=== PATIENT | female | born 1990 | race American Indian/Alaskan Native ===

== ENCOUNTER 2017-05-06 11:14 | Emergency (ER) | payer SELFPAY ==
[2017-05-06] MEDS ORDERED: CLEOCIN 600 MG/50 mL 600 MG/50 ML BAG IV ONE (13:15)
[2017-05-06] MEDS ORDERED: MOTRIN PO ONE (13:16)
--- NOTE | 2017-05-06 13:16 | Emergency Department Report ---
ED ENT HPI - General Chief complaint: Pain General Stated complaint: FACIAL SWELLING LT SIDE Time Seen by Provider: 05/06/17 13:09 Source: patient Mode of arrival: Ambulatory Limitations: No Limitations - Related Data Previous Rx's Medication Instructions Recorded Last Taken Type Clindamycin [Clindamycin CAP] 300 mg PO Q8H #30 cap 05/06/17 Unknown Rx Allergies Allergy/AdvReac Type Severity Reaction Status Date / Time No Known Allergies Allergy Unverified 05/06/17 11:39 ED Dental HPI - General Chief complaint: Pain General Stated complaint: FACIAL SWELLING LT SIDE Time Seen by Provider: 05/06/17 13:09 Source: patient Mode of arrival: Ambulatory Limitations: No Limitations - History of Present Illness MD complaint: tooth pain -: Gradual Context- Dental: history of dental caries Dental Associated Symptons: Yes: Gum Swelling, Fever. No: Headache, Earache, Sore Throat - Related Data Previous Rx's Medication Instructions Recorded Last Taken Type Clindamycin [Clindamycin CAP] 300 mg PO Q8H #30 cap 05/06/17 Unknown Rx Allergies Allergy/AdvReac Type Severity Reaction Status Date / Time No Known Allergies Allergy Unverified 05/06/17 11:39 ED Review of Systems ROS: Stated complaint: FACIAL SWELLING LT SIDE Other details as noted in HPI Comment: Unobtainable due to pts medical conditions Constitutional: no symptoms reported, see HPI, fever. denies: chills Eyes: as per HPI, other (L FACE SWELLING) ENT: as per HPI, dental pain (L UPPER 2ND MOLAR). denies: ear pain, throat pain , hearing loss, epistaxis Respiratory: no symptoms reported, see HPI. denies: cough, orthopnea Cardiovascular: as per HPI. denies: chest pain, palpitations, dyspnea on exertion, orthopnea Endocrine: no symptoms reported, see HPI. denies: excessive sweating, flushing , intolerance to cold, intolerance to heat Gastrointestinal: as per HPI. denies: abdominal pain, nausea, vomiting Genitourinary: as per HPI. denies: urgency, dysuria Musculoskeletal: as per HPI. denies: back pain Skin: as per HPI. denies: rash, lesions Neurological: as per HPI. denies: headache, weakness Psychiatric: as per HPI. denies: anxiety, depression Hematological/Lymphatic: as per HPI. denies: easy bleeding (DMD 1 Y AGO. PLAYING ON PHONE DURING EXAM) ED Past Medical Hx - Past Medical History Previous Medical History?: No - Surgical History Past Surgical History?: No - Social History Smoking Status: Never Smoker Substance Use Type: None - Medications Home Medications: Home Medications Medication Instructions Recorded Confirmed Last Taken Type Clindamycin [Clindamycin CAP] 300 mg PO Q8H #30 cap 05/06/17 Unknown Rx ED Physical Exam - General Limitations: No Limitations ED Course Vital Signs 05/06/17 05/06/17 05/06/17 11:36 13:39 16:11 Temperature 100.7 F H 98.6 F Pulse Rate 90 69 Respiratory 18 18 18 Rate Blood Pressure 127/84 Blood Pressure 116/68 [Right] O2 Sat by Pulse 100 100 Oximetry - Reevaluation(s) Reevaluation #1: 05/06/17 ] TO ER W DENTAL PAIN AND MAX GUM SWELLING NO LUDWIGS NO RETROPHARY ABSCESS TAKING PO CONTROLLING SECRETIONS TALKING NO MARIELA. FEVER TREATED IV CLINDA LABS NOTED WBC N CT NOTED NO SINUS INVOLVEMENT FEVER DEC WANTS TO DC WILL COME BACK FOR RECHECK TOMORROW. VSS NAD NO FEVER ON DC 1620 ED Medical Decision Making - Lab Data Result diagrams: 05/06/17 14:43 05/06/17 14:43 - Medical Decision Making RESPONDED TO RX FEELING BETTER WILL RETURN IN AM ABC INTACT TAKING PO CONTROLLING SECRETIONS Critical care attestation.: If time is entered above; I have spent that time in minutes in the direct care of this critically ill patient, excluding procedure time. ED Disposition Clinical Impression: Dental abscess, Cellulitis Disposition: DC-01 TO HOME OR SELFCARE Is pt being admited?: No Does the pt Need Aspirin: No Condition: Stable Instructions: Dental Abscess (ED) Additional Instructions: med as ordered take next dose at 10p and then in am motrin or tylenol for fever return here tomorrow for recheck YOU WILL NEED TO SEE DMD ON MONDAY SEE LIST Prescriptions: Clindamycin [Clindamycin CAP] 300 mg PO Q8H #30 cap Referrals: [facility] [Outside] - 3-5 Days Time of Disposition: 16:14
[2017-05-06 14:04] LABS: Bacteria,Urine 1+ /HPF (Negative); Bilirubin,Urine NEG (Negative); Blood,Urine MOD (Negative); Ketones,Urine TR mg/dL (Negative); Leukocyte Esterase,Urine NEG (Negative); Mucus,Urine FEW /HPF; Nitrite,Urine NEG (Negative); Protein,Urine <15 mg/dL mg/dL (Negative)
--- NOTE | 2017-05-06 14:50 | Cat Scan Report ---
FINAL REPORT PROCEDURE: CT SINUSES WO CON TECHNIQUE: Computerized axial tomography of the paranasal sinuses was performed without contrast material. Axial, coronal, and sagittal multiplanar reformatted images were created from the original dataset. HISTORY: DENTAL ABSCESS ? TO L SINUS COMPARISON: No prior studies are available for comparison. FINDINGS: Minimal rounded mucosal thickening is seen in the anterior left ethmoid air cells. Mild mucosal thickening is seen in the floor of the left maxillary sinus. No air-fluid levels are seen in the paranasal sinuses. Globes appear symmetric. No postseptal swelling is seen. There is prominent left infraorbital swelling in the face that could be cellulitis. Prominent hazy edema is seen in the left cheek and jaw. There is concern for a periosteal abscess adjacent to the anterior left maxilla. This measures 1.0 x 0.7 cm. There is mild lucency adjacent to the tooth root of the left 2nd premolar. This has cortical breakthrough adjacent to the area of facial abscess. No cortical breakthrough is seen associated with the floor of the left maxillary sinus. IMPRESSION: 4 millimeter periapical abscess is seen associated with the left 2nd maxillary premolar. This has cortical breakthrough with adjacent 1.0 x 0.7 cm soft tissue abscess in the left cheek/upper lip. Diffuse cellulitis is suspected in the left side of the face. No involvement of the sinuses or orbits is seen.
[2017-05-06 15:00] LABS: Basophils % (Auto) 0.4 % (0.0-1.8); Hematocrit 31.2 % (30.3-42.9); Hemoglobin 10.7 gm/dl (10.1-14.3); Mean Corpuscular HGB Conc 34 % (30-34); Mean Corpuscular Hemoglobin 32 pg (28-32); Mean Corpuscular Volume 94 fl (79-97); Platelet Count 243 K/mm3 (140-440); Red Blood Count 3.33 M/mm3 (3.65-5.03); Red Cell Distribution Width 13.1 % (13.2-15.2); White Blood Count 9.2 K/mm3 (4.5-11.0)
[2017-05-06 15:22] LABS: Alanine Aminotransferase 14 units/L (7-56); Albumin 4.4 g/dL (3.9-5); Albumin/Globulin Ratio 1.3 %; Alkaline Phosphatase 50 units/L (35-129); Anion Gap 16 mmol/L; BUN/Creatinine Ratio 18; Blood Urea Nitrogen 7 mg/dL (7-17); Calcium 9.6 mg/dL (8.4-10.2); Carbon Dioxide 26 mmol/L (22-30); Chloride 100.7 mmol/L (98-107); Glucose 92 mg/dL (65-100); Potassium 4.2 mmol/L (3.6-5.0); Sodium 138 mmol/L (137-145); Total Protein 7.9 g/dL (6.3-8.2)
[2017-05-06 16:12] VITALS: BP 116/68
[2017-05-06] MEDS ORDERED: CLEOCIN PO ONE (16:12)
== END 2017-05-06 16:26 | disposition home or self-care (01) ==
LOC: ED 11:14
DX: K04.7 Periapical abscess without sinus (principal)
CPT/HCPCS: 36415; 70486; 80053; 81001; 84703; 85025; 96365; 99284

== ENCOUNTER 2017-05-07 12:41 | Emergency (ER) | payer SELFPAY ==
[2017-05-07 13:24] VITALS: BP 111/68
[2017-05-07] MEDS ORDERED: CLEOCIN 300 MG/50 mL 300 MG/50 ML BAG IV ONE (13:34)
[2017-05-07] MEDS ORDERED: CLEOCIN 600 MG/50 mL 600 MG/50 ML BAG IV ONE ×2 (13:40→13:44)
--- NOTE | 2017-05-07 13:40 | Emergency Department Report ---
Abscess Boil HPI - HPI Chief Complaint: Dental/Oral Stated Complaint: FOLLOW UP Time Seen by Provider: 05/07/17 13:34 Duration: 1 Day (follow up) Location: Other (dental abscess) History: Yes Pain, Yes Previous History, No Fever, No Purulent Drainage, No Numbness, No Foreign Body, No Insect Bite Home Medications: Previous Rx's Medication Instructions Recorded Last Taken Type Clindamycin [Clindamycin CAP] 300 mg PO Q8H #30 cap 05/06/17 Unknown Rx traMADol [Ultram] 50 mg PO Q6HR PRN #12 tablet 05/07/17 Unknown Rx Allergies/Adverse Reactions: Allergies Allergy/AdvReac Type Severity Reaction Status Date / Time No Known Allergies Allergy Unverified 05/06/17 11:39 ED Review of Systems ROS: Stated complaint: FOLLOW UP Other details as noted in HPI Comment: Unobtainable due to pts medical conditions Constitutional: no symptoms reported, see HPI. denies: chills, fever Eyes: as per HPI. denies: eye pain ENT: as per HPI, dental pain. denies: ear pain, throat pain, hearing loss, epistaxis Respiratory: no symptoms reported, see HPI. denies: cough, orthopnea Cardiovascular: as per HPI. denies: chest pain, palpitations, dyspnea on exertion, orthopnea Endocrine: no symptoms reported, see HPI. denies: excessive sweating, flushing , intolerance to cold, intolerance to heat Gastrointestinal: as per HPI. denies: abdominal pain, nausea, vomiting Genitourinary: as per HPI. denies: urgency, dysuria Musculoskeletal: as per HPI. denies: back pain Skin: as per HPI. denies: rash, lesions Neurological: as per HPI. denies: headache, weakness Psychiatric: as per HPI. denies: anxiety, depression Hematological/Lymphatic: as per HPI. denies: easy bleeding ED Past Medical Hx - Past Medical History Previous Medical History?: Yes Additional medical history: Dental abscess - Surgical History Past Surgical History?: No - Social History Smoking Status: Never Smoker Substance Use Type: Alcohol - Medications Home Medications: Home Medications Medication Instructions Recorded Confirmed Last Taken Type Clindamycin [Clindamycin CAP] 300 mg PO Q8H #30 cap 05/06/17 Unknown Rx traMADol [Ultram] 50 mg PO Q6HR PRN #12 tablet 05/07/17 Unknown Rx ED Abscess Boil Physical Exam - Exam General: Vital signs noted. No distress. Alert and acting appropriately. MUCH IMPROVED HAS DMD APPNT MONDAY Exam: Yes Surrounding Cellulites/Erythema, Yes Normal Neurologic Exam, Yes Normal Circulation, No Tenderness, No Fluctuance, No Lymphangitis, No Crepitation, No Heart Murmur ED Course Vital Signs 05/07/17 13:20 Temperature 98.7 F Pulse Rate 75 Respiratory 18 Rate Blood Pressure 111/68 O2 Sat by Pulse 100 Oximetry - Reevaluation(s) Reevaluation #1: 05/07/17 13:55 TO ER FOR FU FROM YEST VSS NO FEVER DEC SWELLING LOOKS MUCH BETTER TODAY TAKING MEDS HAS DMD APPNT MONDAY Critical care attestation.: If time is entered above; I have spent that time in minutes in the direct care of this critically ill patient, excluding procedure time. ED Disposition Clinical Impression: Dental abscess, Cellulitis Disposition: - TO HOME OR SELFCARE Is pt being admited?: No Does the pt Need Aspirin: No Condition: Stable Additional Instructions: CONTINUE TO TAKE MEDS FOLLOW UP DMD IN AM TAKE YOU PAPER WORK FROM ER WITH YOU Referrals: PRIMARY CARE [Primary Care Provider] - 3-5 Days Time of Disposition: 13:53
== END 2017-05-07 14:19 | disposition home or self-care (01) ==
LOC: ED 12:41
DX: K04.7 Periapical abscess without sinus (principal)
CPT/HCPCS: 96365

== ENCOUNTER 2019-09-28 09:46 | Emergency (ER) | payer SELFPAY ==
[2019-09-28 09:51] VITALS: BP 122/74
--- NOTE | 2019-09-28 10:27 | Emergency Department Report ---
Chief Complaint: OB/Uterine Contractions Stated Complaint: VERIFICATION Time Seen by Provider: 09/28/19 10:23 - HPI History of Present Illness: 28-year-old -Sy[place] female presents to the emergency room room wanting to have a confirmation. Patient denies any abdominal pain no vaginal bleeding no vaginal discharge. - Exam Vital Signs: Vital Signs 09/28/19 09:50 Temperature 99.6 F Pulse Rate 80 Respiratory 18 Rate Blood Pressure 122/74 O2 Sat by Pulse 100 Oximetry Physical Exam: Gen: alert oriented NAD Mini neuro: Amatory without difficulties MSE screening note: Focused history and physical exam performed. Due to findings the following was ordered: 28-year-old -Syrian female presents to the emergency room room wanting to have a confirmation. Patient denies any abdominal pain no vaginal bleeding no vaginal discharge. ED Disposition for MSE Disposition: MED SCREENING EXAM-LEFT Is pt being admited?: No Does the pt Need Aspirin: No Condition: Stable Additional Instructions: Follow-up at [facility] office for verification/confirmation Referrals: PRIMARY CARE [Primary Care Provider] - 3-5 Days [facility] [Provider Group] - 3-5 Days [facility] [Provider Group] - 3-5 Days
== END 2019-09-28 11:00 | disposition left against medical advice (07) ==
LOC: ED 09:46
DX: Z32.00 Encounter for pregnancy test, result unknown (principal)
CPT/HCPCS: 99281

== ENCOUNTER 2019-11-20 13:29 | Emergency (ER) | payer MEDICAID ==
[2019-11-20 13:39] VITALS: BP 120/74
[2019-11-20] MEDS ORDERED: SODIUM CHLORIDE 0.9% 1000 ML 1,000 ML IV ONE (13:53)
[2019-11-20] MEDS ORDERED: METOCLOPRAMIDE 10 MG/2 ML INJ IV ONE (13:53)
[2019-11-20 14:17] LABS: Basophils % (Auto) 0.4 % (0.0-1.8); Eosinophils % (Auto) 0.3 % (0.0-4.3); Hematocrit 30.5 % (30.3-42.9); Hemoglobin 10.6 gm/dl (10.1-14.3); Lymphocytes % (Auto) 17.4 % (13.4-35.0); Mean Corpuscular HGB Conc 35 % (30-34); Mean Corpuscular Volume 89 fl (79-97); Monocytes # (Auto) 0.4 K/mm3 (0.0-0.8); Monocytes % (Auto) 7.6 % (0.0-7.3); Platelet Count 354 K/mm3 (140-440); Red Blood Count 3.43 M/mm3 (3.65-5.03); Red Cell Distribution Width 12.2 % (13.2-15.2)
--- NOTE | 2019-11-20 14:42 | Emergency Department Report ---
ED N/V/D HPI - General Chief complaint: Nausea/Vomiting/Diarrhea Stated complaint: 11 WKS PREG/N/VOMIT/DEHYDRATION Time Seen by Provider: 11/20/19 13:53 Source: patient Mode of arrival: Ambulatory Limitations: No Limitations - History of Present Illness Initial comments: This is a 28-year-old female nontoxic, well nourished in appearance, no acute signs of distress presents to the ED with c/o of nausea and vomiting 4 days. Patient that she is currently about 11 weeks . Denies any pelvic pain or vaginal bleeding. Patient describes vomiting as food content. Patient denies any abdominal pain, chest pain, short of breath, fever, chills, headache, stiff neck, numbness or tingling. Patient denies any diarrhea or constipation. Denies any blood in stool. Patient denies any recent travels. Patient denies any drug allergies significant past medical history. MD complaint: nausea, vomiting -: days(s) Description of Vomiting: food contents Associated Abdominal Pain: No Pain Scale: 0 Improves with: none Worsens with: none Associated Symptoms: nausea/vomiting. denies: myalgias, chest pain, cough, diaphoresis, fever/chills, headaches, loss of appetite, malaise, rash, dysuria, shortness of breath, syncope, weakness - Related Data Previous Rx's Medication Instructions Recorded Last Taken Type Clindamycin [Clindamycin CAP] 300 mg PO Q8H #30 cap 05/06/17 Unknown Rx traMADoL [Ultram] 50 mg PO Q6HR PRN #12 tablet 05/07/17 Unknown Rx Doxylamine Succinate [Unisom] 25 mg PO BID PRN #20 tablet 10/31/19 Unknown Rx Gissell Root [Gissell] 250 mg PO QID PRN #40 capsule 10/31/19 Unknown Rx Pyridoxine HCl (Vitamin B6) 50 mg PO BID PRN #20 tablet 10/31/19 Unknown Rx [Pyridoxine HCl] Metoclopramide [Reglan] 10 mg PO Q12H PRN #12 tab 11/20/19 Unknown Rx Allergies Allergy/AdvReac Type Severity Reaction Status Date / Time No Known Allergies Allergy Unverified 05/06/17 11:39 ED Review of Systems ROS: Stated complaint: 11 WKS PREG/N/VOMIT/DEHYDRATION Other details as noted in HPI Constitutional: denies: chills, fever Eyes: denies: eye pain, eye discharge, vision change ENT: denies: ear pain, throat pain Respiratory: denies: cough, shortness of breath, wheezing Cardiovascular: denies: chest pain, palpitations Endocrine: no symptoms reported Gastrointestinal: nausea, vomiting. denies: abdominal pain, diarrhea, constipa tion, hematemesis, hematochezia Genitourinary: denies: urgency, dysuria, discharge Musculoskeletal: denies: back pain, joint swelling, arthralgia Skin: denies: rash, lesions Neurological: denies: headache, weakness, paresthesias Psychiatric: denies: anxiety, depression Hematological/Lymphatic: denies: easy bleeding, easy bruising ED Past Medical Hx - Past Medical History Previous Medical History?: No Additional medical history: Dental abscess - Surgical History Past Surgical History?: No - Social History Smoking Status: Never Smoker Substance Use Type: None - Medications Home Medications: Home Medications Medication Instructions Recorded Confirmed Last Taken Type Clindamycin [Clindamycin CAP] 300 mg PO Q8H #30 cap 05/06/17 Unknown Rx traMADoL [Ultram] 50 mg PO Q6HR PRN #12 tablet 05/07/17 Unknown Rx Doxylamine Succinate [Unisom] 25 mg PO BID PRN #20 tablet 10/31/19 Unknown Rx Gissell Root [Gissell] 250 mg PO QID PRN #40 capsule 10/31/19 Unknown Rx Pyridoxine HCl (Vitamin B6) 50 mg PO BID PRN #20 tablet 10/31/19 Unknown Rx [Pyridoxine HCl] Metoclopramide [Reglan] 10 mg PO Q12H PRN #12 tab 11/20/19 Unknown Rx ED Physical Exam - General Limitations: No Limitations General appearance: alert, in no apparent distress - Head Head exam: Present: atraumatic, normocephalic - Eye Eye exam: Present: normal appearance - Neck Neck exam: Present: normal inspection, full ROM. Absent: tenderness, meningismus, lymphadenopathy - Respiratory Respiratory exam: Present: normal lung sounds bilaterally. Absent: respiratory distress, wheezes, rales, rhonchi, stridor, chest wall tenderness, accessory muscle use, decreased breath sounds, prolonged expiratory - Cardiovascular Cardiovascular Exam: Present: regular rate, normal rhythm, tachycardia, normal heart sounds. Absent: irregular rhythm, systolic murmur, diastolic murmur, rubs, gallop - GI/Abdominal GI/Abdominal exam: Present: soft, normal bowel sounds. Absent: distended, tenderness, guarding, rebound, rigid, diminished bowel sounds - Extremities Exam Extremities exam: Present: normal inspection, full ROM - Back Exam Back exam: Present: normal inspection, full ROM. Absent: tenderness, CVA tenderness (R), CVA tenderness (L), muscle spasm, paraspinal tenderness, vertebral tenderness, rash noted - Neurological Exam Neurological exam: Present: alert, oriented X3, normal gait - Psychiatric Psychiatric exam: Present: normal affect, normal mood - Skin Skin exam: Present: warm, dry, intact, normal color. Absent: rash ED Course Vital Signs 11/20/19 13:37 Temperature 97.0 F L Pulse Rate 111 H Respiratory 16 Rate Blood Pressure 120/74 [Right] O2 Sat by Pulse 100 Oximetry - Reevaluation(s) Reevaluation #1: 11/20/19 14:40 Patient is speaking in full sentences with no signs of distress noted. ED Medical Decision Making - Lab Data Result diagrams: 11/20/19 Unknown 11/20/19 Unknown - Medical Decision Making This is a 28-year-old female that presents with hyperemesis gravidarum. Patient is stable and was examined by me. There is no abdominal tenderness. Negative signs of symptoms of appendicitis, cholecystitis or acute abdomen. Labs obtained. UA obtained. Vital signs are stable prior to discharge. Patient received Reglan and 1L Normal saline in the ED which patient stated symptoms has resovled and subsided. A by mouth challenge has been obtained and patient tolerated well with no nausea vomiting. Patient was also instructed to Follow- up with a OBGYN doctor in 3-5 days or if symptoms worsen and continue return to emergency room as soon as possible. At time of discharge, the patient does not seem toxic or ill in appearance. No acute signs of distress noted. Patient agrees to discharge treatment plan of care. No further questions noted by the patient. Critical care attestation.: If time is entered above; I have spent that time in minutes in the direct care of this critically ill patient, excluding procedure time. ED Disposition Clinical Impression: Hyperemesis gravidarum Disposition: - TO HOME OR SELFCARE Is pt being admited?: No Does the pt Need Aspirin: No Condition: Stable Instructions: Hyperemesis Gravidarum (ED) Additional Instructions: Follow-up with a OBGYN doctor in 3-5 days or if symptoms worsen and continue return to emergency room as soon as possible. Prescriptions: Metoclopramide [Reglan] 10 mg PO Q12H PRN #12 tab PRN Reason: Nausea Referrals: PRIMARY CARE, [Primary Care Provider] - 3-5 Days LUCAS AGUILERA MD [Staff Physician] - 3-5 Days [facility] [Provider Group] - 3-5 Days Forms: Work/School Release Form(ED)
[2019-11-20 14:46] LABS: BUN/Creatinine Ratio 22; Blood Urea Nitrogen 11 mg/dL (7-17); Calcium 10.6 mg/dL (8.4-10.2); Hemolysis Index 8
== END 2019-11-20 16:24 | disposition home or self-care (01) ==
LOC: ED 13:29
DX: O21.0 Mild hyperemesis gravidarum (principal); Z79.899 Other long term (current) drug therapy
CPT/HCPCS: 36415; 80048; 84702; 85025; 96361; 96374; 99283; J2765; J7030

== ENCOUNTER 2020-07-31 16:01 | Emergency (ER) | payer MEDICAID ==
[2020-07-31 16:36] VITALS: BP 153/98
--- NOTE | 2020-07-31 16:43 | Emergency Department Report ---
ED General Adult HPI - General Chief complaint: Dental/Oral Stated complaint: TOOTH ABSCESS Time Seen by Provider: 07/31/20 16:39 Source: patient Mode of arrival: Ambulatory Limitations: No Limitations - History of Present Illness Initial comments: 29-year-old -[place] female patient presents with complaints of left upper dental pain and facial swelling x 1 day. Patient states she has had dental pain for the past few days that suddenly worsened upon waking this morning with facial swelling. She denies any fever/chills/sweats, difficulty op ening her jaw, or history of dental abscess. She rates her current pain as a 10/10 in severity. Severity scale (0 -10): 8 - Related Data Previous Rx's Medication Instructions Recorded Last Taken Type Clindamycin [Clindamycin CAP] 300 mg PO Q8H #30 cap 05/06/17 Unknown Rx traMADoL [Ultram] 50 mg PO Q6HR PRN #12 tablet 05/07/17 Unknown Rx Doxylamine Succinate [Unisom] 25 mg PO BID PRN #20 tablet 10/31/19 Unknown Rx Gissell Root [Gissell] 250 mg PO QID PRN #40 capsule 10/31/19 Unknown Rx Pyridoxine HCl (Vitamin B6) 50 mg PO BID PRN #20 tablet 10/31/19 Unknown Rx [Pyridoxine HCl] Metoclopramide [Reglan] 10 mg PO Q12H PRN #12 tab 11/20/19 Unknown Rx Acetaminophen/Codeine [Tylenol 1 tab PO Q8H PRN #12 tab 07/31/20 Unknown Rx /Codeine # 3 tab] Clindamycin [Clindamycin CAP] 300 mg PO Q6H 10 Days #40 capsule 07/31/20 Unknown Rx Ibuprofen [Motrin 800 MG tab] 800 mg PO Q8HR PRN #20 tablet 07/31/20 Unknown Rx Allergies Allergy/AdvReac Type Severity Reaction Status Date / Time No Known Allergies Allergy Unverified 05/06/17 11:39 ED Review of Systems ROS: Stated complaint: TOOTH ABSCESS Other details as noted in HPI Constitutional: denies: chills, diaphoresis, fever, malaise ENT: dental pain Endocrine: denies: excessive sweating Gastrointestinal: denies: nausea, vomiting Neurological: denies: headache Hematological/Lymphatic: denies: swollen glands ED Past Medical Hx - Past Medical History Previous Medical History?: No Additional medical history: Dental abscess - Surgical History Past Surgical History?: No - Social History Smoking Status: Never Smoker Substance Use Type: None - Medications Home Medications: Home Medications Medication Instructions Recorded Confirmed Last Taken Type Clindamycin [Clindamycin CAP] 300 mg PO Q8H #30 cap 05/06/17 Unknown Rx traMADoL [Ultram] 50 mg PO Q6HR PRN #12 tablet 05/07/17 Unknown Rx Doxylamine Succinate [Unisom] 25 mg PO BID PRN #20 tablet 10/31/19 Unknown Rx Gissell Root [Gissell] 250 mg PO QID PRN #40 capsule 10/31/19 Unknown Rx Pyridoxine HCl (Vitamin B6) 50 mg PO BID PRN #20 tablet 10/31/19 Unknown Rx [Pyridoxine HCl] Metoclopramide [Reglan] 10 mg PO Q12H PRN #12 tab 11/20/19 Unknown Rx Acetaminophen/Codeine [Tylenol 1 tab PO Q8H PRN #12 tab 07/31/20 Unknown Rx /Codeine # 3 tab] Clindamycin [Clindamycin CAP] 300 mg PO Q6H 10 Days #40 capsule 07/31/20 Unknown Rx Ibuprofen [Motrin 800 MG tab] 800 mg PO Q8HR PRN #20 tablet 07/31/20 Unknown Rx ED Physical Exam - General Limitations: No Limitations General appearance: alert, in no apparent distress - Head Head exam: Present: atraumatic, normocephalic - Eye Eye exam: Absent: scleral icterus - ENT ENT exam: Present: mucous membranes moist - Expanded ENT Exam Expanded Mouth exam: Present: tongue normal. Absent: drooling, trismus, muffled voice 1 - Dental Tenderness (Abscess noted with moderate overlying facial swelling; no cellulitic changes noted) - Respiratory Respiratory exam: Absent: respiratory distress - Cardiovascular Cardiovascular Exam: Present: regular rate - Neurological Exam Neurological exam: Present: alert, oriented X3, normal gait - Psychiatric Psychiatric exam: Present: normal affect, normal mood - Skin Skin exam: Present: warm, dry, intact, normal color. Absent: rash ED Course Vital Signs 07/31/20 16:33 Temperature 98.8 F Pulse Rate 84 Respiratory 18 Rate Blood Pressure 153/98 [Right] O2 Sat by Pulse 100 Oximetry - I & D Cheek Type of Procedure: Simple Site: Left upper molar Blade Size: 11 Progress: Minimal bleeding occurred. Dental block performed using Marcaine 0.5% without epi. Mild purulent drainage noted from incision site. Patient tolerated procedure well without any immediate complications. ED Medical Decision Making - Medical Decision Making 29-year-old -[place] female patient presents with complaints of left upper dental pain and facial swelling x 1 day. Patient states she has had dental pain for the past few days that suddenly worsened upon waking this morning with facial swelling. She denies any fever/chills/sweats, difficulty opening her jaw, or history of dental abscess. She rates her current pain as a 10/10 in severity. Incision and drainage performed. Patient tolerated procedure well. Pain is controlled. She is afebrile nontachycardic. Patient is stable for discharge home. Informed patient to follow-up with a dental specialist within 2 days. Patient was provided with a dental specialist list. Prescription for clindamycin given. Discussed signs and symptoms that should prompt immediate return to the emergency department in detail with patient who verbalizes understanding. Critical care attestation.: If time is entered above; I have spent that time in minutes in the direct care of this critically ill patient, excluding procedure time. ED Disposition Clinical Impression: Dental abscess Disposition: DC-01 TO HOME OR SELFCARE Is pt being admited?: No Condition: Stable Instructions: Dental Abscess Additional Instructions: Please follow-up with the dental specialist from the list provided within 2 days. Prescriptions: Clindamycin [Clindamycin CAP] 300 mg PO Q6H 10 Days #40 capsule Ibuprofen [Motrin 800 MG tab] 800 mg PO Q8HR PRN #20 tablet PRN Reason: Pain, Moderate (4-6) Acetaminophen/Codeine [Tylenol /Codeine # 3 tab] 1 tab PO Q8H PRN #12 tab PRN Reason: Pain , Severe (7-10) Forms: Work/School Release Form(ED)
[2020-07-31] MEDS ORDERED: BUPIVACAINE-EPINEPHRINE/PF 0.5%-1:200,000 (30 ML) VIAL INFILTRATI ONE (17:00)
[2020-07-31] MEDS ORDERED: BUPIVACAINE/PF (0.5%) 5 MG/1 ML 10 ML VIAL INFILTRATI ONE (17:18)
== END 2020-07-31 18:26 | disposition home or self-care (01) ==
LOC: ED 16:01
DX: K04.7 Periapical abscess without sinus (principal); Z79.1 Long term (current) use of non-steroidal anti-inflammatories (NSAID); Z79.2 Long term (current) use of antibiotics; Z79.899 Other long term (current) drug therapy
CPT/HCPCS: 99282